=== PATIENT | female | born 1980 | race Caucasian/White ===

== ENCOUNTER 2017-01-20 13:00 | Emergency (ER) | payer OTHER ==
--- NOTE | 2017-01-20 14:31 | RAD ---
LEFT KNEE 5 VIEWS: Date: 01/20/17 HISTORY: Fall. Pain. COMPARISON: None. FINDINGS: No evidence of patellar dislocation. No joint effusion. Joint spaces are preserved. No malalignment. No fracture. IMPRESSION: No post-traumatic sequelae. POS: YANIRA
--- NOTE | 2017-01-20 14:35 | RAD ---
FRONTAL AND LATERAL IMAGING OF RIGHT TIBIA AND FIBULA: Date: 01/20/17 COMPARISON: None. HISTORY: Fall yesterday, pain. FINDINGS: No fracture or evidence of dislocation is seen. No radiopaque foreign body or subcutaneous gas. IMPRESSION: No acute findings. POS: YANIRA
[2017-01-20] MEDS ORDERED: HYDROcodone/Acetaminophen 10/325 mg Tablet ONE (14:39)
[2017-01-20] MEDS ORDERED: Naproxen 500 MG TAB ONE (14:39)
== END 2017-01-20 14:40 | disposition home or self-care (01) ==
LOC: MADERS 13:00
DX: S80.02XA Contusion of left knee, initial encounter (principal); S80.11XA Contusion of right lower leg, initial encounter; W19.XXXA Unspecified fall, initial encounter

== ENCOUNTER 2017-06-10 18:15 | Emergency (ER) | payer OTHER ==
[2017-06-10] MEDS ORDERED: Ondansetron ODT 4 MG TAB ONE (18:54)
[2017-06-10] MEDS ORDERED: Metoclopramide HCl 10 MG/2 ML VIAL ONE (20:00)
== END 2017-06-10 21:15 | disposition home or self-care (01) ==
LOC: MADERS 18:15
DX: K52.9 Noninfective gastroenteritis and colitis, unspecified (principal); Z87.891 Personal history of nicotine dependence
CPT/HCPCS: 96372; J2765; Q0162

== ENCOUNTER 2018-07-20 18:43 | Emergency (ER) | payer OTHER ==
--- NOTE | 2018-07-20 20:28 | RAD ---
RIGHT WRIST THREE VIEWS: History: Injury to wrist. FINDINGS: There is a transverse mildly displaced fracture involving the distal radius. Ulna appears intact. Car pals appear intact. IMPRESSION: Fractured distal radius. POS: YANIRA
--- NOTE | 2018-07-20 20:36 | RAD ---
RIGHT HAND THREE VIEWS: History: Injury to right hand. FINDINGS: Carpals, metacarpals, and phalanges appear intact. However, there is a transverse fracture involving the distal radius with minimal displacement. IMPRESSION: Fracture distal radius. POS: YANIRA
== END 2018-07-20 20:56 | disposition home or self-care (01) ==
LOC: MADERS 18:43
DX: S52.501A Unspecified fracture of the lower end of right radius, initial encounter for closed fracture (principal); Z87.891 Personal history of nicotine dependence; W22.8XXA Striking against or struck by other objects, initial encounter
CPT/HCPCS: 29125

== ENCOUNTER 2021-03-12 07:40 | Outpatient (CLI) | payer BC, OTHER ==
[2021-03-12 08:42] LABS: #Basophils 0.1 thou/uL (0.0-0.2); #Eosinphils 0.1 thou/uL (0.0-0.7); #Lymphocytes 1.1 thou/uL (1.20-3.40); #Monocytes 0.4 thou/uL (0.11-0.59); #Neutrophils 4.7 thou/uL (1.40-6.50); %Eosinophils 1.8 % (0.0-10.0); %Lymphocytes 17.3 % (21.0-51.0); %Monocytes 6.6 % (0.0-10.0); %Neutrophils 73.3 % (42.0-75.0); Hemoglobin 13.4 g/dL (12.0-16.0); Mean Corpuscular HGB CONC 31.6 g/dL (32.0-36.0); Mean Corpuscular Volume 94.7 fL (78.0-98.0); Mean Platelet Volume 8.6 fL (7.4-10.4); Platelet Count 164 thou/uL (130-400); RBC Distribution Width 11.6 % (11.5-14.5); Red Blood Cell (RBC) Count 4.48 mill/uL (4.20-5.40); White Blood Cell (WBC) Count 6.4 thou/uL (4.8-10.8)
[2021-03-12 08:48] LABS: Bilirubin Negative (Negative); Blood, Urine Negative (Negative); Clarity Clear (Clear); Glucose, Urine (Dipstick) Negative (Negative); Ketone, Urine Negative (Negative); Leukocyte Trace (Negative); Nitrite Negative (Negative); Protein, Urine (Dipstick) Negative (Neg-Trace); Urobilinogen 0.2 mg/dL (Less than 2); pH, Urine 5.5 (5.0-9.0)
[2021-03-12 09:26] LABS: ALT (SGPT) 8 U/L (8-55); AST (SGOT) 14 U/L (5-34); Albumin 4.2 g/dL (3.5-5.0); Alkaline Phosphatase 117 U/L (40-110); Anion Gap 14 mmol/L (10-20); BUN (Urea Nitrogen) 8 mg/dL (7.0-18.7); Bilirubin, Total 0.9 mg/dL (0.2-1.2); Calc. Creatinine Clearance 0 mL/min (70-130); Carbon Dioxide 25 mmol/L (22-29); Cardiac Risk 3.2 (Less than 4.5); Chloride 108 mmol/L (98-107); Cholesterol 181 mg/dl (< 200 Desired); Globulin 2.4 g/dL (2.4-3.5); Glucose 85 mg/dL (70-105); HDL Cholesterol 57 mg/dL (>60 Neg Risk); LDL Cholesterol, Calculated 112 mg/dL; Protein, Total 6.6 g/dL (6.0-8.3); Sodium 143 mmol/L (136-145); Triglycerides 60 mg/dL (Less than 150)
[2021-03-12 09:41] LABS: Specific Gravity, Urine 1.028 (1.002-1.036)
[2021-03-12 09:43] LABS: Thyroid Stimulating Hormone 1.9022 uIU/mL (0.35-4.94)
[2021-03-12 09:45] LABS: RBC/HPF 0-3 HPF (0-3)
[2021-03-12 09:46] LABS: Bacteria/HPF Rare-Few HPF (None Seen)
[2021-03-12 17:46] LABS: Iron 76 ug/dL (50-170); Iron Binding Capacity, Total 289 mcg/dL (265-497)
[2021-03-12 18:45] LABS: Free T4 (Free Thyroxine) 0.9 ng/dL (0.70-1.48)
== END 2021-03-12 07:41 | disposition home or self-care (01) ==
LOC: MADLAB 07:40
PROVIDERS: ATTEND Family Medicine
DX: Z00.00 Encounter for general adult medical examination without abnormal findings (principal); E56.9 Vitamin deficiency, unspecified
CPT/HCPCS: 80053; 80061; 81001; 82306; 82607; 82746; 83036; 83540; 83550; 84439; 84443; 84597; 85025

== ENCOUNTER 2021-06-03 11:55 | Emergency (ER) | payer BC ==
[2021-06-04 15:26] LABS: SARS-CoV-2 PCR by NAA Not Detected (NotDetected)
== END 2021-06-03 12:50 | disposition home or self-care (01) ==
LOC: MADERS 11:55
DX: B34.9 Viral infection, unspecified (principal); Z20.822 Contact with and (suspected) exposure to COVID-19; Z87.891 Personal history of nicotine dependence; Z79.899 Other long term (current) drug therapy
CPT/HCPCS: 99283; U0003; U0005

== ENCOUNTER 2022-01-04 19:16 | Emergency (ER) | payer BC ==
[2022-01-04] MEDS ORDERED: Lidocaine 1%/Epinephrine 1:100K 10 ML VIAL ONE (21:15)
[2022-01-04] MEDS ORDERED: cefTRIAXone\\ROCEPHIN 1 GM VIAL ONE (21:15)
== END 2022-01-04 21:56 | disposition home or self-care (01) ==
LOC: MADERS 19:16
DX: J18.9 Pneumonia, unspecified organism (principal); Z20.822 Contact with and (suspected) exposure to COVID-19; Z87.891 Personal history of nicotine dependence
CPT/HCPCS: 71045; 87804; 96372; J0696; U0003; U0005

== ENCOUNTER 2022-06-30 12:04 | Emergency (ER) | payer BC | END 2022-06-30 14:19 | disposition home or self-care (01) | LOC: MADERS 12:04 | DX: S80.12XA Contusion of left lower leg, initial encounter (principal); Z87.891 Personal history of nicotine dependence; W22.8XXA Striking against or struck by other objects, initial encounter ==

== ENCOUNTER 2023-07-04 09:33 | Emergency (ER) | payer BC, OTHER ==
[2023-07-04] MEDS ORDERED: Ondansetron PF 4 MG/2 ML Vial ONE (10:00)
[2023-07-04] MEDS ORDERED: Ketorolac Tromethamine 30 MG (1 mL) VIAL ONE (10:00)
[2023-07-04] MEDS ORDERED: Sodium Chloride 0.9% 1,000 ML ONE (10:00)
[2023-07-04 10:37] LABS: ALT (SGPT) 15 U/L (8-55); AST (SGOT) 18 U/L (5-34); Alkaline Phosphatase 78 U/L (40-110); Anion Gap 14 mmol/L (10-20); BUN (Urea Nitrogen) 5 mg/dL (7.0-18.7); Bilirubin, Total 0.6 mg/dL (0.2-1.2); Calc. Creatinine Clearance 0 mL/min (70-130); Calcium 9.4 mg/dL (7.8-10.44); Carbon Dioxide 22 mmol/L (22-29); Chloride 109 mmol/L (98-107); Estimated GFR 96; Globulin 2.3 g/dL (2.4-3.5); Glucose 92 mg/dL (70-105); Potassium 3.6 mmol/L (3.5-5.1); Protein, Total 6.3 g/dL (6.0-8.3); Sodium 141 mmol/L (136-145)
[2023-07-04 10:44] LABS: Bilirubin Negative (Negative); Blood, Urine Trace (Negative); Glucose, Urine (Dipstick) Negative (Negative); Ketone, Urine Trace mg/dL (Negative); Leukocyte Moderate (Negative); Nitrite Negative (Negative); Protein, Urine (Dipstick) Negative (Neg-Trace); Specific Gravity, Urine 1.025 (1.005-1.030); Urobilinogen 0.2 mg/dL (Less than 2); pH, Urine 5.5 (5.0-9.0)
[2023-07-04 10:53] LABS: Band 2 % (5-11); Eosinophils 2 % (0-10); Hematocrit 40.7 % (36.0-47.0); Hemoglobin 13.3 g/dL (12.0-16.0); Lymphocytes 13 % (21-51); MDiff Complete? YES; Manual Diff?? YES; Mean Corpuscular HGB CONC 32.7 g/dL (32.0-36.0); Mean Corpuscular Hemoglobin 30.1 pg (27.0-31.0); Mean Corpuscular Volume 92.1 fl (78.0-98.0); Mean Platelet Volume 8.4 fL (7.4-10.4); Monocytes 10 % (0-10); Neutrophil 57 % (42-75); Platelet Count 122 10x3/uL (130-400); RBC Distribution Width 11.6 % (11.5-14.5); Reactive Lymphocytes 15 % (0-10); Red Blood Cell (RBC) Count 4.42 mill/uL (4.20-5.40); White Blood Cell (WBC) Count 2.9 10x3/uL (4.8-10.8)
[2023-07-04 10:54] LABS: Platelet Adequacy Comment Appears Decreased; RBC Morph Comment Within Normal Limits
[2023-07-04 10:55] LABS: Clarity Hazy (Clear)
[2023-07-04 10:57] LABS: Bacteria/HPF 1+ HPF (None Seen); CAUTI Indications for Culture Pelvic or flank pain; Mucous/LPF 2+ LPF (<2+); RBC/HPF 0-3 HPF (0-3); Urine Culture Reflex No No
[2023-07-04] MEDS ORDERED: cefTRIAXone (ROCEPHIN) 1 GM VIAL ONE (10:59)
[2023-07-04] MEDS ORDERED: Sodium Chloride 0.9% 100 ML ONE (10:59)
== END 2023-07-04 11:30 | disposition home or self-care (01) ==
LOC: MADERS 09:33
DX: J01.90 Acute sinusitis, unspecified (principal); B96.89 Other specified bacterial agents as the cause of diseases classified elsewhere; N39.0 Urinary tract infection, site not specified; R11.2 Nausea with vomiting, unspecified; F17.290 Nicotine dependence, other tobacco product, uncomplicated
CPT/HCPCS: 80053; 81001; 85025; 87086; 87804; 96361; 96365; 96375; J0696; J1885; J2405; J3490; J7050

== ENCOUNTER 2023-10-13 02:04 | Emergency (ER) | payer OTHER ==
[2023-10-13] MEDS ORDERED: Sodium Chloride 0.9% 1,000 ML ONE ×2 (02:43→04:00)
[2023-10-13] MEDS ORDERED: Ketorolac Tromethamine 30 MG (1 mL) VIAL ONE (03:41)
[2023-10-13 03:42] LABS: BHCG - Serum Negative (NEGATIVE); Pregs Control Background? CLEAR/WHITE (CLR/WHITE); Pregs Control Bar Appear? YES (CONTROL BAR)
[2023-10-13 03:43] LABS: Band 3 % (5-11); Eosinophils 2 % (0-10); Hematocrit 41.2 % (36.0-47.0); Hemoglobin 12.6 g/dL (12.0-16.0); Lymphocytes 3 % (21-51); MDiff Complete? YES; Mean Corpuscular HGB CONC 30.4 g/dL (32.0-36.0); Mean Corpuscular Hemoglobin 29.1 pg (27.0-31.0); Mean Corpuscular Volume 95.5 fl (78.0-98.0); Mean Platelet Volume 7.1 fL (7.4-10.4); Monocytes 7 % (0-10); Neutrophil 85 % (42-75); Platelet Count 130 10x3/uL (130-400); RBC Distribution Width 12.3 % (11.5-14.5); Red Blood Cell (RBC) Count 4.32 mill/uL (4.20-5.40); White Blood Cell (WBC) Count 7.8 10x3/uL (4.8-10.8)
[2023-10-13 03:49] LABS: ALT (SGPT) 16 U/L (8-55); AST (SGOT) 17 U/L (5-34); Albumin 3.6 g/dL (3.5-5.0); Alkaline Phosphatase 80 U/L (40-110); Anion Gap 13 mmol/L (10-20); BUN (Urea Nitrogen) 12 mg/dL (7.0-18.7); Bilirubin, Total 0.9 mg/dL (0.2-1.2); Calc. Creatinine Clearance 0 mL/min (70-130); Calcium 8.4 mg/dL (7.8-10.44); Carbon Dioxide 20 mmol/L (22-29); Chloride 111 mmol/L (98-107); Estimated GFR 89; Globulin 1.8 g/dL (2.4-3.5); Glucose 128 mg/dL (70-105); Lipase 27 U/L (8-78); Magnesium 1.6 mg/dL (1.6-2.6); Potassium 4.4 mmol/L (3.5-5.1); Protein, Total 5.4 g/dL (6.0-8.3); Sodium 140 mmol/L (136-145)
[2023-10-13] MEDS ORDERED: Acetaminophen 500 MG TAB ONE (04:20)
[2023-10-13] MEDS ORDERED: Iopamidol 370 76% 100 ML VIAL ONE (09:00)
== END 2023-10-13 05:11 | disposition home or self-care (01) ==
LOC: MADERS 02:04
DX: K52.9 Noninfective gastroenteritis and colitis, unspecified (principal); F41.9 Anxiety disorder, unspecified; R11.2 Nausea with vomiting, unspecified; I10 Essential (primary) hypertension; F17.290 Nicotine dependence, other tobacco product, uncomplicated; Z90.49 Acquired absence of other specified parts of digestive tract; Z86.79 Personal history of other diseases of the circulatory system
CPT/HCPCS: 36415; 74177; 80053; 83690; 83735; 84703; 85025; 96361; 96374; J1885; J7050; Q9967

== ENCOUNTER 2024-08-08 13:30 | Emergency (ER) | payer OTHER, SELFPAY ==
[2024-08-08] MEDS ORDERED: Dexamethasone 10 MG/ML VIAL ONE (14:49)
== END 2024-08-08 15:24 | disposition home or self-care (01) ==
LOC: MADERS 13:30
DX: J30.1 Allergic rhinitis due to pollen (principal); R05.9 Cough, unspecified; F17.290 Nicotine dependence, other tobacco product, uncomplicated
CPT/HCPCS: 71046; 87428; J1100